=== PATIENT | male | born 1970 | race Caucasian/White ===

== ENCOUNTER → 2017-05-15 | Outpatient (CLI) | payer OTHER | END | disposition home or self-care (01) | LOC: MI 07:08 | DX: M54.5 Low back pain (principal); M54.2 Cervicalgia ==

== ENCOUNTER → 2017-08-05 | Outpatient (CLI) | payer OTHER | END | disposition home or self-care (01) | LOC: RD 12:33 | DX: M65.4 Radial styloid tenosynovitis [de Quervain] (principal); M65.342 Trigger finger, left ring finger; M72.2 Plantar fascial fibromatosis ==